=== PATIENT | female | born 1955 | race Caucasian/White ===

== ENCOUNTER 2017-10-02 10:20 | Inpatient (IN) | payer MEDICARE, BC ==
[~2017-10-02] VITALS: Ht 172.7 cm; Wt 86.2 kg
[~2017-10-02 10:20] MED LIST: CLONAZEPAM 0.50.5 M1 PO; FLEXERIL PO; HYDROCODON-ACE1 EAC7 PO; HYDROXYCHLOROQ200 M1 PO; LAMICTAL XR200 MG PO; MAGNESIUM250 M1 PO; METHOTREXATE 22.5 MG PO; PAXIL40 MG PO; PRAVACHOL40 MG PO; PREVACID15 MG PO; TRAZODONE HCL100 MG PO
[2017-10-02 10:21] VITALS: BP 111/74
[2017-10-02 10:58] LABS: ABSOLUTE BASOPHILS 0.1 thou/uL (0.0-0.2); ABSOLUTE EOSINOPHILS 0.2 thou/uL (0.0-0.7); ABSOLUTE LYMPHOCYTES 1.4 thou/uL (0.8-5.3); ABSOLUTE MONOCYTES 0.7 thou/uL (0.0-1.2); ABSOLUTE NEUTROPHILS 6.9 thou/uL (1.6-8.1); BASOPHILS 0.9 %; EOSINOPHILS 1.7 %; HEMATOCRIT 38.8 % (37.0-47.0); LYMPHOCYTES 15.3 %; MCH 32.5 pg (26.0-34.0); MCHC 33.6 g/dL (28.0-37.0); MCV 96.8 fL (80.0-100.0); MONOCYTES 7.7 %; MPV 7.5 fl. (7.2-11.1); NUCLEATED RBCS 0 /100WBC; PLATELET COUNT* 264 thou/uL (150-400); POLYS 74.4 %; RBC 4.01 mil/uL (4.20-5.00); RDW-CV 13.9 % (10.5-14.5); WBC 9.3 thou/uL (4.0-11.0)
[2017-10-02 11:04] LABS: CALCIUM 8.7 mg/dL (8.5-10.1); CREATININE 0.7 mg/dL (0.6-1.3); POTASSIUM 4.3 mmol/L (3.5-5.1); PROTIME 10.1 Seconds (9.20-11.50)
[2017-10-02 11:09] LABS: ALBUMIN 3.6 g/dL (3.4-5.0); TOTAL BILIRUBIN 0.2 mg/dL (<0.1-1.0); TOTAL PROTEIN 6.9 g/dL (6.4-8.2)
[2017-10-02 12:51] VITALS: BP 122/74
[2017-10-02 14:14] VITALS: BP 125/75
[2017-10-02 16:00] VITALS: BP 126/78
--- NOTE | 2017-10-02 16:18 | 2DMMODE ---
[place] [address] 2 D/M-MODE ECHOCARDIOGRAM Name: DEEDEE JACKMAN Room: [address] IN [facility]#: [id number] Admission: 10/02/17 Attend Phys: Alysia Rivera, Discharge: Date of : 59 Date of Service: 10/02/17 1618 Report #: [id number] THIS REPORT FOR: //name// APPROVED REPORT Study performed: 10/02/2017 14:26:47 EXAM: Comprehensive 2D, Doppler, and color-flow Echocardiogram Patient Location: In-Patient Room #: [facility] Status: routine BSA: 2.00 HR: 74 bpm BP: 122/74 mmHg Rhythm: NSR Other Information Technically limited study due to inability to position patient, patient has broken hip could not lay on side.. Indications Pre-Op 2D Dimensions LVEF(%): 70.28 (>50%) IVSd: 9.94 (7-11mm) LVOT Diam: 21.18 (18-24mm) LVDd: 46.16 mm PWd: 10.36 (7-11mm) Ascending Ao: 30.10 (22-36mm) LVDs: 27.85 (25-40mm) Aortic Root: 33.84 mm Cat's LVEF: 70.28 % Pulmonary Valve PV Peak Trae.: 1.12 m/s PV Peak Gr.: 5.06 mmHg Left Ventricle The left ventricle is normal size. There is normal LV segmental wall motion. There is normal left ventricular wall thickness. Left ventricular systolic function is normal. The left ventricular ejection fraction is within the normal range. LVEF is 60-65%. This study is not technically sufficient to allow evaluation of the LV diastolic function[place] [address] 2 D/M-MODE ECHOCARDIOGRAM Name: DEEDEE JACKMAN Room: [address] [place] .R.#: [id number] Admission: 10/02/17 Attend Phys: Alysia Rivera, Discharge: Date of : 59 Date of Service: 10/02/17 1618 Report #: [id number] The right ventricle is normal size. The right ventricular systolic function is normal. Atria The left atrium size is normal. The right atrium size is normal. Aortic Valve Mild aortic valve sclerosis. No aortic regurgitation is present. There is no aortic valvular stenosis. Mitral Valve The mitral valve is normal in structure. There is no mitral valve regurgitation noted. No evidence of mitral valve stenosis. Tricuspid Valve The tricuspid valve is normal in structure. Unable to assess PA pressure. Trace tricuspid regurgitation. Pulmonic Valve The pulmonary valve is normal in structure. There is no pulmonic valvular regurgitation. Great Vessels The aortic root is normal in size. IVC is normal in size and collapses with >50% inspiration Pericardium There is no pericardial effusion. <Conclusion> The left ventricle is normal size. There is normal left ventricular wall thickness. Left ventricular systolic function is normal. The left ventricular ejection fraction is within the normal range. LVEF is 60-65%. The right ventricle is normal size. The left atrium size is normal. Mild aortic valve sclerosis. No aortic regurgitation is present. There is no aortic valvular stenosis. The mitral valve is normal in structure. The tricuspid valve is normal in structure. IVC is normal in size and collapses with >50% [place] [address] 2 D/M-MODE ECHOCARDIOGRAM Name: DEEDEE JACKMAN eRbekah Room: [address]#: [id number] Admission: 10/02/17 Attend Phys: Alysia Rivera, Discharge: Date of : 59 Date of Service: 10/02/171617 Report #: [id number] There is no pericardial effusion. There is normal LV segmental wall motion. <ELECTRONICALLY SIGNED> By: Devaughn Leonard MD, [facility] 10/02/171617 17 1618 Devaughn Leonard MD, FACC /INF
--- NOTE | 2017-10-02 17:50 | NUR ---
ASSUMED CARE OF PATIENT AFTER ADMISSION FROM ED AT 1300. ADMISSION HISTORY AND ASSESSMENT COMPLETED AND CHARTED. VSS ON ROOM AIR. PAIN WAS NOT WELL CONTROLEED WITH FENTANYL, CALLED PHYSICIAN AND CHANGED TO MORPHINE, THIS WORKS WELL. PATIENT IS CURRENTLY A REGULAR DIET, WILL BE NPO AFTER MIDNIGHT FOR POSSIBLE SURGERY TOMORROW. PAREDES INSERTED AT APPROXIMATELY 1730, 1500 OUT UPON INSERTION. FLUIDS STARTED AND INFUSING ORDERED. NO COMPLAINTS OF NAUSEA OR SOA THIS SHIFT. ICE PACKS PLACED ON HIP FOR COMFORT. PATIENTS SISTER HAS BEEN AT BEDSIDE THROUGHOUT SHIFT. HOURLY ROUNDS MAINTAINED, CALL LIGHT IN REACH. NURSING WILL CONTINUE TO MONITOR.
[2017-10-02 23:43] VITALS: BP 111/63
[2017-10-03 01:08] VITALS: BP 111/63
[2017-10-03 04:54] LABS: HEMATOCRIT 34.7 % (37.0-47.0); HEMOGLOBIN 11.7 gm/dL (12.0-15.0); MCH 33.1 pg (26.0-34.0); MCHC 33.7 g/dL (28.0-37.0); MCV 98.2 fL (80.0-100.0); MPV 7.5 fl. (7.2-11.1); RBC 3.53 mil/uL (4.20-5.00); RDW-CV 13.7 % (10.5-14.5); WBC 8.1 thou/uL (4.0-11.0)
[2017-10-03 05:03] LABS: APTT 29.5 Seconds (25.0-31.3); PROTIME 10.2 Seconds (9.20-11.50)
[2017-10-03 05:05] LABS: CALCIUM 8.1 mg/dL (8.5-10.1); CREATININE 0.6 mg/dL (0.6-1.3); POTASSIUM 4.5 mmol/L (3.5-5.1)
[2017-10-03 05:10] LABS: ALBUMIN 3.2 g/dL (3.4-5.0); MAGNESIUM 1.8 mg/dL (1.8-2.4); TOTAL BILIRUBIN 0.5 mg/dL (<0.1-1.0)
--- NOTE | 2017-10-03 07:07 | NUR ---
PT SLEPT WELL AFTER MIDNIGHT. RECEIVING IV AND PO PAIN MED FOR GOOD CONTROL OF R HIP PAIN. BUCKS TRACTION IN PLACE TO R LEG. RHAND IVF INFUSING PER PUMP. HAS BEEN NPO SINCE MIDNIGHT FOR HIP REPAIR SURGERY THIS AFTERNOON. PAREDES DRAINING YELLOW URINE. ABLE TO USE CALL LITE AND MAKE NEEDS KNOWN.
[2017-10-03 08:00] VITALS: BP 121/62
--- NOTE | 2017-10-03 10:50 | EKG ---
[place] [address] ELECTROCARDIOGRAM REPORT Name: DEEDEE JACKMAN Room: [address] ADM IN M.R.#: [id number] Admission: 10/02/17 Attend Phys: Alysia Rivera MD Discharge: Date of : 59 Report #: [id number] THIS REPORT FOR: //name// [facility] Test Date: 2017-10-03 Test Time: 08:21:09 Pat Name: DEEDEE JACKMAN Department: Room: [address] Gender: F Assembler Installer Structures: : 1955 Requested By: Felix Hoyt Order Number: [id number] Reading MD: Ky Hernandez Measurements Intervals [place] Rate: 69 P: 71 AK: 180 QRS: 64 QRSD: 104 T: 65 QT: 405 QTc: 434 Interpretive Statements Sinus rhythm Baseline wander in lead(s) I,III,aVL Compared to ECG 05/08/2013 17:04:40 No significant changes Electronically Signed On 10-03-2017 10:49:58 CDT by Ky Hernandez [email or web address] <ELECTRONICALLY SIGNED> By: Ky Hernandez MD, [facility] 10/03/17 1049 0821 0821 Ky Hernandez MD, [facility] /EPI
--- NOTE | 2017-10-03 12:10 | NUR ---
OR STAFF HERE TO GET PT FOR HER HIP REPAIR SURGERY. CONSENT SIGNED AND PLACED ON THE CHART. PT TRANSPORTED ON BED.
--- NOTE | 2017-10-03 12:30 | NUR ---
CM UNABLE TO SEE PT. SHE WAS BEING TAKEN TO SURGERY. WILL SEE TOMORROW.
--- NOTE | 2017-10-03 17:45 | NUR ---
PT RETURNED FROM PACU FROM RT HIP REPAIR. DRESSING INTACT. PT DENIES PAIN. FAMILY CURRENTLY AT BEDSIDE. ORDERS REVIEWED.
--- NOTE | 2017-10-03 17:57 | NUR ---
SHIFT NOTE - PT OFF UNIT FOR SURGERY. PT RETURNED AROUND 1745. FAMILY PRESENT AT BEDSIDE. PT DENIES PAIN.
[2017-10-03 20:00] VITALS: BP 116/73
[2017-10-04 00:16] VITALS: BP 113/71
[2017-10-04 04:12] VITALS: BP 103/59
[2017-10-04 04:38] LABS: HEMATOCRIT 27.3 % (37.0-47.0); MCH 33.3 pg (26.0-34.0); MCV 97.9 fL (80.0-100.0); MPV 7.7 fl. (7.2-11.1); RBC 2.79 mil/uL (4.20-5.00); RDW-CV 13.7 % (10.5-14.5); WBC 12.2 thou/uL (4.0-11.0)
[2017-10-04 04:49] LABS: HEMOGLOBIN 9.3 gm/dL (12.0-15.0)
[2017-10-04 04:54] LABS: ALBUMIN 2.7 g/dL (3.4-5.0); CALCIUM 7.7 mg/dL (8.5-10.1); CREATININE 0.6 mg/dL (0.6-1.3); POTASSIUM 4.4 mmol/L (3.5-5.1); TOTAL BILIRUBIN 0.2 mg/dL (<0.1-1.0); TOTAL PROTEIN 5.4 g/dL (6.4-8.2)
--- NOTE | 2017-10-04 06:13 | NUR ---
Assumed patient care at 1910. Dressing to incision on right hip c/d/i. States that her pain is much better after surgery. Rates about a 5. Controlled with IV and oral pain medications. Passing flatus. IS provided and education done. Patietn verbalizes understanding of mobility status. Alert and oriented times four. HOurly rounding and tactical response group officer comleted as documented.
[2017-10-04 09:00] VITALS: BP 126/75
--- NOTE | 2017-10-04 10:17 | NUR ---
SW met with pt to complete initial assessment, introduce self, and SW role. Pt alert, oriented, pleasant. Pt lives at home alone but said that she has 3 nephews who will be back from college this summer and plan to take turns providing any assistance and living with pt at dc. Pt does not have any DME or history of HH or SNF. Pt says she is already feeling much better after surgery. Pt hopeful to be able to return home with HH. Pt said she would not want [facility] if SNF needed. Pt agreeable to considering other options or [facility] inpt rehab if pt qualified and was in need of any further rehab in a skilled or post acute setting. SW to continue to follow to assist with safe dc planning.
[2017-10-04 16:00] VITALS: BP 121/67
--- NOTE | 2017-10-04 17:50 | NUR ---
PATIENT IS ALERT AND ORIENTED TODAY VERY PLEASANT. TOLERATED THERAPY WELL TODAY, HAS BEEN IN CHAIR MOST OF THE DAY. PAIN HAS BEEN CONTROLLED WITH ORAL PAIN MEDICATION TODAY. VITAL SIGNS HAVE BEEN STABLE ON ROOM AIR. FAMILY HAS BEEN AT BEDSIDE MOST OF THE DAY. CALL LIGHT IS IN REACH, WILL CONTINUE TO MONITOR.
[2017-10-04 21:00] VITALS: BP 113/63
[2017-10-05 03:34] VITALS: BP 103/54
[2017-10-05 04:36] LABS: HEMATOCRIT 22.9 % (37.0-47.0); HEMOGLOBIN 7.8 gm/dL (12.0-15.0); MCH 33.2 pg (26.0-34.0); MCHC 34.2 g/dL (28.0-37.0); MCV 97.1 fL (80.0-100.0); MPV 7.5 fl. (7.2-11.1); RBC 2.36 mil/uL (4.20-5.00); RDW-CV 13.5 % (10.5-14.5); WBC 10.3 thou/uL (4.0-11.0)
[2017-10-05 05:11] LABS: ALBUMIN 2.6 g/dL (3.4-5.0); CALCIUM 7.8 mg/dL (8.5-10.1); CREATININE 0.5 mg/dL (0.6-1.3); MAGNESIUM 1.9 mg/dL (1.8-2.4); POTASSIUM 3.8 mmol/L (3.5-5.1); TOTAL BILIRUBIN 0.4 mg/dL (<0.1-1.0); TOTAL PROTEIN 5.7 g/dL (6.4-8.2)
--- NOTE | 2017-10-05 07:15 | NUR ---
PATIENT HAS SLEPT WELL THROUGHOUT THE NIGHT WITHOUT ANY ISSUES. PAIN WELL CONTROLLED WITH ORAL PAIN MEDICATION AND CHARTED. VSS ON RA. PATIENT REMAINS TTWB ON RIGHT LEG. PATIENT IS UP WITH ASSIST X 1 TO THE BSC. DRESSING TO RIGHT LEG IS C/D/I. IV TO RIGHT HAND-SL. PATIENT INSTRUCTED TO USE CALL LIGHT WHEN NEEDING ASSISTANCE. HOURLY ROUNDS MADE. WILL CONTINUE WITH PLAN OF CARE AND NURSING TO MONITOR.
[2017-10-05 07:40] VITALS: BP 102/63
[2017-10-05 16:19] VITALS: BP 113/64
--- NOTE | 2017-10-05 18:06 | NUR ---
PATIENT HAS BEEN ALERT ORIENTED TODAY VERY PLEASANT. PAIN THAT IS CONTROLLED WITH ORAL PAIN MEDICATIONS TODAY. HAS BEEN UP TO THE BEDSIDE COMMODE TODAY. FAMILY HAS BEEN AT BEDSIDE TODAY. CALL LIGHT IS IN REACH, WILL CONTINUE TO MONITOR.
[2017-10-05 21:20] VITALS: BP 113/69
[2017-10-06 01:17] VITALS: BP 106/58
[2017-10-06 04:00] VITALS: BP 103/63
[2017-10-06 07:30] VITALS: BP 98/63
--- NOTE | 2017-10-06 08:29 | NUR ---
PATIENT HAS SLEPT WELL THROUGHOUT THE NIGHT WITHOUT ANY ISSUES. PAIN WELL CONTROLLED WITH ORAL PAIN MEDICATION AND CHARTED. VSS ON RA. DRESSING TO RIGHT LEG IS C/D/I. SCD'S IN PLACE. PATIENT IS UP WITH ASSIST X 1 TO THE BATHROMM. IV IN RIGHT HAND-SL. PATIENT INSTRUCTED TO USE CALL LIGHT WHEN NEEDING ASSISTANCE. HOURLY ROUNDS MADE.
--- NOTE | 2017-10-06 11:59 | NUR ---
REHAB CONSULT RECEIVED AND ACKNOWLEDGED BY DR. BAGLEY AND SUPERVISOR WET POUR. PATIENT WITH RIGHT FEMUR FX S/P FALL AND SURGERY 10/03 FOR ORIF. UPON INITIAL REVIEW, NO OT SERVICES ARE IN PLACE. I REQUESTED AN ORDER FOR O.T. TO DETERMINE IF PATIENT MEETS NEED OF 2 DISCIPLINES FOR INPATIENT REHAB. THANK YOU.
[2017-10-06 16:00] VITALS: BP 114/57
[2017-10-06] MEDS ORDERED: OXYCODONE HCL5 M1 PO (16:04)
[2017-10-06] MEDS ORDERED: PREDNISONE 20 M20 MG PO (16:04)
[2017-10-06] MEDS ORDERED: TRAMADOL 50 MG50 MG PO (16:04)
[2017-10-06] MEDS ORDERED: NICOTINE TRANSD21 M1 TRANSDERM (16:04)
--- NOTE | 2017-10-06 17:41 | NUR ---
PATIENT LEFT UNIT AT 1740. UP WITH ASSIST X1 WITH WALKER AND GAIT BELT. IV DC'D. PAIN BEING MANAGED WITH PO PAIN MEDICATION. DENIES NAUSEA. PATIENT ATTENDED PHYSICAL AND OCCUPATIONAL THERAPY THIS SHIFT. TOLERATING DIET. ALL PERSONAL ITEMS SENT WITH PATIENT. VSS ON ROOM AIR. HOURLY ROUNDS HAVE BEEN MAINTAINED THROUGHOUT SHIFT. TRANSFERRED TO REHAB ROOM 324. REPORT GIVEN TO LIZETT RHODES.
--- NOTE | 2017-10-08 11:57 | OP ---
[address] [address] OPERATIVE REPORT Name: DEEDEE JACKMAN Rebekah Room: [address]#: [id number] Admission: 10/02/17 Attend Phys: Alysia Rivera MD Discharge: 10/06/17 Date of : 59 Report #: [id number] THIS REPORT FOR: //name// CC: Alysia Silverman DATE OF SERVICE: 10/03/2017 PREOPERATIVE DIAGNOSIS: Closed complex subtrochanteric - intertrochanteric fracture, right hip. POSTOPERATIVE DIAGNOSIS: Closed complex subtrochanteric - intertrochanteric fracture, right hip. OPERATION PERFORMED: Open reduction and internal fixation of a complex closed right hip fracture, intertrochanteric - subtrochanteric fracture and physician-directed fluoroscopy less than [address] Christie. SURGEON: Alberto Christie DO FRE[address]ANCE COURT STENOGRAPHER: Vishal Link DO SECOND DAIRY WORKER: Mendy Andino DO ANESTHESIA: General. GROSS PATHOLOGY: There was evidence of intertrochanteric fracture with subtrochanteric extension, which is complex in nature as patient is markedly obese and because of this fracture pattern, required a long cephalomedullary ish rather than the usual standard cephalomedullary ish. IMPLANTS UTILIZED: [place] long gamma ish with 85 mm lag screw, distal locking screws x 2, set screw proximal portion of ish. DESCRIPTION OF PROCEDURE: The patient was brought to the operating room where general anesthetic was administered. Preoperative antibiotics were given. The patient was placed on the operating table, where the right leg was placed in traction and reduced as best could be done. Further reduction was done intraoperatively. A Hibiclens scrub and a ChloraPrep, prep are done to the right hip, leg. The patient was draped in a sterile manner. An incision was made approximately 3 inches length at the greater trochanter of the right hip. It was carried down through the skin and subcuticular material by sharp dissection. By sharp and blunt dissection, the greater trochanter tip was identified and the starting awl was utilized to make a hole in this region. As there was some flexion of the proximal fragment and posterior displacement and lateral of the shaft of the femur, the incision was further made approximately [address] [place] [address] OPERATIVE REPORT Name: DEEDEE JACKMAN Rebekah Room: [address]#: [id number] Admission: 10/02/17 Attend Phys: Alysia Rivera MD Discharge: 10/06/17 Date of : 59 Report #: [id number] inches in length in the intertrochanteric region laterally. It was carried down through the skin and subcuticular material by sharp dissection. Tensor fascia tracee split in line with the incision. The soft tissue vastus material was elevated off the lateral aspect of the femur. By means of clamps and elevators, the fracture was further manually reduced and held in reduced position. The guidewire was placed down the shaft of the femur to the superior pole of the patella and measurements were taken. Keeping the fracture reduced, the femur was then reamed to 13 mm, increasing from 9 mm, successfully increasing the size of the reamers. The 15.5 mm reamer was utilized for the starting hole area down to the lesser trochanteric region. The long gamma cephalomedullary ish is assembled, placed over the guidewire to the appropriate depth and the guidewire was removed. Final advancement was in good position. C-arm was used intermittently through this procedure being under my direction. Utilizing the guide, which lines up with the incision, which was used for further reduction, a guidewire was inserted into the femoral neck and head to the appropriate depth, measurements are taken. The reamer was used to ream over the guidewire. The lag screw was then placed over the guidewire. Proximal locking screw was tightened into the lag screw and backed off a quarter turn. The inserting device was removed. Attention was turned to the distal femur. Utilizing freehand technique, small incisions were made. The guides were placed across the ish through the 2 holes, measurements were taken. Screws x 2 are placed across the distal portion of the ish. Final C-arm visualization revealed acceptable position of the fracture sites and implant devices. The deep tissues are closed with odd Vicryl suture, tensor with odd Vicryl suture, subcutaneous with 2-0 Vicryls and sravan on the skin. Estimated blood loss was approximately 400 mL. The wounds were thoroughly irrigated through the procedure. The needle and sponge count reported as correct. The areas were anesthetized with Marcaine, 30 mL of 0.5% plain. The patient was transferred to recovery room in good condition. <ELECTRONICALLY SIGNED> By: Horacio Luu DO 10/08/17 1157 1645 1731Alberto Christie DO /nt
--- NOTE | 2017-10-08 11:57 | CON ---
[address] [address] CONSULTATION Name: DEEDEE JACKMAN Rebekah Room: [address]#: [id number] Admission: 10/02/17 Attend Phys: Alysia Rivera MD Discharge: 10/06/17 Date of : 59 Report #: [id number] THIS REPORT FOR: //name// CC: Alysia Uriosteguijewelmarilou DATE OF SERVICE: 10/03/2017 HISTORY OF PRESENT ILLNESS: This patient is seen for orthopedic problem of right hip pain. She reportedly fell off a ladder while trimming a tree on 10/02/2017. She has been admitted, stabilized and presents for surgery. She has no other major complaints. Her medications reviewed per her list. PAST MEDICAL HISTORY: Consistent with anxiety, bipolar, rheumatoid arthritis, hypertension. SOCIAL HISTORY: Smokes pack of cigarettes for 1-1.5 packs for at least 42 years. Minimal alcohol use or recreational drugs. REVIEW OF SYSTEMS: A 14-point review of symptoms, right hip pain. Otherwise, essentially negative. PHYSICAL EXAMINATION: GENERAL: Reveals a moderately obese female with normal constitution. HEENT: Head normocephalic. EARS: Normal hearing. EYES: PERRLA. RESPIRATIONS: Unlabored. EXTREMITIES: Right leg reveals pain with any movement. There are no puncture wounds or abrasions to the right hip region. IMAGING: The x-rays reveal a comminuted intertrochanteric subtrochanteric fracture of the right hip. PLAN: The patient has been counseled regarding the surgery, alternatives and possible complications. Postoperative care has been reviewed. The surgery has also been reviewed with her sister and they wished to proceed with surgery. <ELECTRONICALLY SIGNED> By: Horacio Luu DO 10/08/17 1157 1637 1651Alberto Christie DO /nt
--- NOTE | 2017-10-30 12:46 | CON ---
[address] [address] CONSULTATION Name: JACKMANDEEDEE L Room: [address]#: [id number] Admission: 10/02/17 Attend Phys: Alysia Rivera MD Discharge: 10/06/17 Date of : 59 Report #: [id number] THIS REPORT FOR: //name// CC: Alysia Silverman REASON FOR CONSULTATION: Evaluation and recommendations regarding post-acute rehabilitation needs in a female admitted post right femur fracture after falling from a ladder, landing on the right side. No loss of consciousness. Status post diagnosis of closed complex subtrochanteric intertrochanteric fracture, post ORIF on 10/03/2017 with ongoing needs in physical therapy and occupational therapy. She also has a history of hypertension, bipolar, hyperlipidemia, osteoporosis, RA, elevated LFTs and tobaccoism. She is working with therapy. ALLERGIES: PIROXICAM. MEDICATIONS: Reviewed and are available in the MAR. PAST MEDICAL AND SURGICAL HISTORY: Hypertension, anxiety, depression, rheumatoid arthritis, bipolar, hyperlipidemia, osteoporosis, stomach ulcers, gallstones, cholecystectomy, bunionectomy, hysterectomy and bilateral salpingo-oophorectomy. SOCIAL HISTORY: No current tobacco, no alcohol or illicit drug use. PHYSICAL EXAMINATION: GENERAL: Alert, oriented, no apparent distress. VITAL SIGNS: Reviewed and are stable. HEENT: Atraumatic, normocephalic. Pupils equal, round, reactive. ABDOMEN: Soft, nontender, nondistended. NEUROLOGIC: Cranial nerves 2-12 grossly intact. No focal neuro deficits. ASSESSMENT: 1. Acute right traumatic femur fracture post open reduction internal fixation. 2. Bipolar, hyperlipidemia, rheumatoid arthritis, osteoporosis, hypertension, and multiple medical comorbidities. PLAN: 1. Recommend acute inpatient rehabilitation to facilitate safe discharge to home setting. 2. Continue to work with PT and OT. 3. We will follow. <ELECTRONICALLY SIGNED> By: Vianey Castellano DO 10/30/17 1246 1303 1312Vianey Castellano DO /nt
== END 2017-10-06 17:40 | DRG 481 ==
LOC: M.ERS 10:20 → M.TBA-ER 12:22 → M.ORTHSURG 12:22
PROVIDERS: Physician Assistant; ADMIT Internal Medicine
PROC: 0QS804Z Reposition Right Femoral Shaft with Internal Fixation Device, Open Approach (ICD-10-PCS; principal; 2017-10-03)
DX: S72.141A Displaced intertrochanteric fracture of right femur, initial encounter for closed fracture (principal); E44.1 Mild protein-calorie malnutrition; M06.9 Rheumatoid arthritis, unspecified; I10 Essential (primary) hypertension; F41.9 Anxiety disorder, unspecified; F17.210 Nicotine dependence, cigarettes, uncomplicated; K21.9 Gastro-esophageal reflux disease without esophagitis; F31.9 Bipolar disorder, unspecified; J44.9 Chronic obstructive pulmonary disease, unspecified; E78.5 Hyperlipidemia, unspecified; M81.0 Age-related osteoporosis without current pathological fracture; R79.89 Other specified abnormal findings of blood chemistry; W11.XXXA Fall on and from ladder, initial encounter; Y93.89 Activity, other specified; Z88.3 Allergy status to other anti-infective agents; Z68.28 Body mass index [BMI] 28.0-28.9, adult; Y92.198 Other place in other specified residential institution as the place of occurrence of the external cause; Y99.8 Other external cause status; Z90.49 Acquired absence of other specified parts of digestive tract; Z90.710 Acquired absence of both cervix and uterus; Z79.899 Other long term (current) drug therapy

== ENCOUNTER 2017-10-06 15:10 | Inpatient (IN) | payer MEDICARE, BC ==
[~2017-10-06] VITALS: Ht 172.7 cm; Wt 95.4 kg
[2017-10-06] MEDS ORDERED: PREDNISONE 20 M20 MG PO (16:04)
[2017-10-06] MEDS ORDERED: OXYCODONE HCL5 M1 PO (16:04)
[2017-10-06] MEDS ORDERED: NICOTINE TRANSD21 M1 TRANSDERM (16:04)
[2017-10-06] MEDS ORDERED: TRAMADOL 50 MG50 MG PO (16:04)
[2017-10-06 17:57] VITALS: BP 115/67
[2017-10-06 19:51] VITALS: BP 111/66
[2017-10-07 04:59] LABS: HEMATOCRIT 23.6 % (37.0-47.0); HEMOGLOBIN 7.8 gm/dL (12.0-15.0); MCH 32.7 pg (26.0-34.0); MCHC 33.2 g/dL (28.0-37.0); MCV 98.4 fL (80.0-100.0); MPV 7.2 fl. (7.2-11.1); RBC 2.4 mil/uL (4.20-5.00); RDW-CV 13.5 % (10.5-14.5); WBC 12.5 thou/uL (4.0-11.0)
[2017-10-07 05:18] LABS: CALCIUM 8.3 mg/dL (8.5-10.1); CREATININE 0.5 mg/dL (0.6-1.3); POTASSIUM 4.2 mmol/L (3.5-5.1)
[2017-10-07 07:50] VITALS: BP 111/50
[2017-10-07 17:39] VITALS: BP 106/38
[2017-10-07 19:53] VITALS: BP 111/66
[2017-10-08 08:00] VITALS: BP 98/64
[2017-10-08 19:55] VITALS: BP 119/63
[2017-10-09 04:29] LABS: HEMATOCRIT 21.8 % (37.0-47.0); HEMOGLOBIN 7.2 gm/dL (12.0-15.0); MCH 32.4 pg (26.0-34.0); RDW-CV 13.4 % (10.5-14.5)
[2017-10-09 04:32] LABS: MCHC 33.1 g/dL (28.0-37.0); MCV 98.1 fL (80.0-100.0); MPV 7.2 fl. (7.2-11.1); RBC 2.22 mil/uL (4.20-5.00)
[2017-10-09 04:41] LABS: CALCIUM 8.8 mg/dL (8.5-10.1); CREATININE 0.6 mg/dL (0.6-1.3); MAGNESIUM 2.2 mg/dL (1.8-2.4); POTASSIUM 4.9 mmol/L (3.5-5.1)
[2017-10-09 08:02] VITALS: BP 111/68
[2017-10-09 19:45] VITALS: BP 118/61
[2017-10-10 04:26] LABS: HEMATOCRIT 23.1 % (37.0-47.0); HEMOGLOBIN 7.4 gm/dL (12.0-15.0); MCH 31.6 pg (26.0-34.0); MCV 98.8 fL (80.0-100.0); MPV 6.8 fl. (7.2-11.1); RBC 2.33 mil/uL (4.20-5.00); RDW-CV 13.9 % (10.5-14.5); WBC 13.5 thou/uL (4.0-11.0)
[2017-10-10 04:42] LABS: CALCIUM 8.6 mg/dL (8.5-10.1); CREATININE 0.7 mg/dL (0.6-1.3); MAGNESIUM 2.1 mg/dL (1.8-2.4); POTASSIUM 4.4 mmol/L (3.5-5.1)
[2017-10-10 07:55] VITALS: BP 117/53
[2017-10-10 20:15] VITALS: BP 113/62
[2017-10-11 08:00] VITALS: BP 111/72
[2017-10-11 19:30] VITALS: BP 119/71
[2017-10-12 08:00] VITALS: BP 112/76
[2017-10-12 19:53] VITALS: BP 100/47
[2017-10-13 04:16] LABS: HEMATOCRIT 24.9 % (37.0-47.0); HEMOGLOBIN 8.5 gm/dL (12.0-15.0); MCH 33.9 pg (26.0-34.0); MCHC 34.1 g/dL (28.0-37.0); MCV 99.4 fL (80.0-100.0); MPV 6.7 fl. (7.2-11.1); RBC 2.51 mil/uL (4.20-5.00); RDW-CV 14.3 % (10.5-14.5); WBC 8.7 thou/uL (4.0-11.0)
[2017-10-13 04:57] LABS: CALCIUM 8.2 mg/dL (8.5-10.1); CREATININE 0.7 mg/dL (0.6-1.3); POTASSIUM 5.1 mmol/L (3.5-5.1)
[2017-10-13 07:30] VITALS: BP 100/52
[2017-10-13 19:57] VITALS: BP 126/52
[2017-10-14 08:24] VITALS: BP 123/72
[2017-10-14 20:30] VITALS: BP 107/59
[2017-10-15 08:00] VITALS: BP 108/48
[2017-10-15 20:26] VITALS: BP 116/67
[2017-10-16 08:00] VITALS: BP 118/44
[2017-10-16 20:34] VITALS: BP 113/54
[2017-10-17 00:23] VITALS: BP 113/54
[2017-10-17] MEDS ORDERED: FOLIC ACID1 MG PO (00:34)
[2017-10-17] MEDS ORDERED: IFEREX 150150 MG PO (00:38)
[2017-10-17 08:07] VITALS: BP 102/61
[2017-10-17 10:13] VITALS: BP 113/54
[2017-10-17 12:24] VITALS: BP 113/54
--- NOTE | 2017-10-30 12:46 | H ---
[place] [address] HISTORY AND PHYSICAL Name: DEEDEE JACKMAN Room: [address]#: [id number] Admission: 10/06/17 Attend Phys: Vianey Castellano DO Discharge: 10/17/17 Date of : 59 Report #: [id number] THIS REPORT FOR: //name// CC: Vianey Silverman DATE OF SERVICE: 10/06/2017 HISTORY OF PRESENT ILLNESS: This is a 62-year-old female admitted to inpatient rehabilitation to facilitate safe discharge home, status post fall from a ladder, sustaining a displaced intertrochanteric and subtrochanteric fracture of the right hip, status post ORIF on 10/03/2017. She was admitted originally on 10/02/2017. Previous level of function was independent with activities of daily living. Current level of function is minimum to moderate assistance of 1-2 depending on therapy, activity and time of day. Estimated length of stay is 10-14 days with discharge disposition to the home setting, where she lives in a ranch-style house with one step to enter. She does have sister who can provide assistance, although she does live alone. No significant changes since the preadmission screening. She does have multiple medical comorbidities, requiring acute daily medical care. PAST MEDICAL HISTORY: Hypertension, anxiety, depression, bipolar, rheumatoid arthritis, hyperlipidemia, osteoporosis, gallstones, multiple broken bones, cholecystectomy, bunionectomy, hysterectomy, tobaccoism and stomach ulcers. ALLERGIES: PIROXICAM. MEDICATIONS: Reviewed, reconciled by myself and are available in the MAR. SOCIAL HISTORY: Unchanged from previous consultation. REVIEW OF SYSTEMS: A 14-point review of systems is done today, is negative except as mentioned in HPI, specifically no fever, chest pain, shortness of breath, abdominal pain or distention, change in bowel or change in bladder. PHYSICAL EXAMINATION: GENERAL: Alert, oriented, no apparent distress. VITAL SIGNS: Reviewed and are stable. HEENT: Atraumatic, normocephalic. Pupils are equal, round, reactive. ABDOMEN: Soft, nontender, nondistended. NEUROLOGIC: Cranial nerves 2-12 are grossly intact with no focal neuro deficits, 5/5 strength in bilateral upper and lower extremities. SKIN: Warm and dry. No rashes or lesions noted. ASSESSMENT: 1. Status post subtrochanteric and intertrochanteric [place] [address] HISTORY AND PHYSICAL Name: DEEDEE JACKMAN Room: [address]#: [id number] Admission: 10/06/17 Attend Phys: Vianey Castellano DO Discharge: 10/17/17 Date of : 59 Report #: [id number] post fall from a ladder, status post open reduction and internal fixation on 10/03/2017. 2. Multiple medical comorbidities. PLAN: 1. Admission to inpatient rehabilitation. 2. PT, OT, case management, nursing and HIMS to make evaluations and recommendations. 3. Plan of care is pending. 4. Medications have been reviewed and are available in the MAR. 5. We will team her weekly and make changes to plan of care as needed. <ELECTRONICALLY SIGNED> By: Vianey Castellano DO 10/30/17 1246 0614 0636Vianey Castellano DO /nt
--- NOTE | 2017-10-30 12:46 | PLAN ---
[address] [address] REHAB UNIT PLAN OF CARE Name: DEEDEE JACKMAN Room: [address]#: [id number] Admission: 10/06/17 Attend Phys: Vianey Castellano, Discharge: 10/17/17 Date of : 59 Report #: [id number] THIS REPORT FOR: //name// CC: Vianey Castellano Jimbo Silverman This is a 62-year-old female status-post acute hospitalization for a subtrochanteric, intertrochanteric fracture of the right hip, status post ORIF on 10/03/2017 after sustaining a fall from a ladder. MEDICAL PROGNOSIS: Good. REHABILITATION PROGNOSIS: Good. Estimated length of stay is 10-14 days with discharge disposition to the home setting, where she does live alone, but has supportive family in the area. She lives in a ranch-style house with one step to enter. Previous level of function was independent with activities of daily living. Current level of function is minimum assistance of 1-2 depending on therapy, activity and time of day. Physical Therapy will see the patient 60-90 minutes per day, 5 days per week, working on upper and lower body strength, balance, coordination, navigation. Occupational Therapy will see the patient 60-90 minutes per day, 5 days per week, working on upper and lower body strength, balance, coordination, navigation, bathing, dressing, and toileting. This is an overall plan of care, may change from time to time. We will team her weekly and make changes to the plan of care as needed. <ELECTRONICALLY SIGNED> By: Vianey Castellano DO 10/30/17 1246 0616 0641Vianey Castellano DO /nt
--- NOTE | 2018-01-05 10:19 | D ---
[facility] [address] [place] [address] DISCHARGE SUMMARY Name: DEEDEE JACKMAN Room: [address] [place] .R.#: [id number] Admission: 10/06/17 Attend Phys: Vianey Castellano DO Discharge: 10/17/17 Date of : 59 Report #: [id number] THIS REPORT FOR: //name// CC: Vianey Castellano Jimbo Silverman DATE OF SERVICE: 10/17/2017 DISCHARGE DIAGNOSES: Displaced intertrochanteric and subtrochanteric fracture of the right hip, status post open reduction and internal fixation. DISCHARGE DISPOSITION: To home with home health PT, OT and nursing. She will follow with primary care physician within 1 week. She will follow with her orthopedic surgeon within 2-4 weeks. Notifications for physician were given. Maintain regular diet. Maintain fall precautions and monitor weight gain. MEDICATIONS: Reviewed were reconciled by myself and are available in the MAR. The patient did progress towards goals with physical and occupational therapy with no significant incidence during her stay on acute inpatient rehabilitation. DISCHARGE PHYSICAL EXAMINATION: GENERAL: Alert, oriented, no apparent distress. VITAL SIGNS: Reviewed and are stable. HEENT: Atraumatic, normocephalic. Pupils equal, round, reactive. ABDOMEN: Soft, nontender, nondistended. NEUROLOGIC: Cranial nerves 2-12 are grossly intact with no focal neuro deficit. <ELECTRONICALLY SIGNED> By: Vianey Castellano DO 01/05/18 1019 1603 1941Vianey Castellano DO /yany
== END 2017-10-17 12:24 | disposition home health service (06) | DRG 536 ==
LOC: M.REH 15:10
PROVIDERS: Internal Medicine; ADMIT Physical Medicine & Rehabilitation
DX: S72.21XA Displaced subtrochanteric fracture of right femur, initial encounter for closed fracture (principal); S72.141A Displaced intertrochanteric fracture of right femur, initial encounter for closed fracture; I10 Essential (primary) hypertension; F41.8 Other specified anxiety disorders; M06.9 Rheumatoid arthritis, unspecified; E78.5 Hyperlipidemia, unspecified; W11.XXXA Fall on and from ladder, initial encounter; F17.210 Nicotine dependence, cigarettes, uncomplicated; M81.0 Age-related osteoporosis without current pathological fracture; Z90.49 Acquired absence of other specified parts of digestive tract; Z90.710 Acquired absence of both cervix and uterus; Z88.8 Allergy status to other drugs, medicaments and biological substances; Y92.096 Garden or yard of other non-institutional residence as the place of occurrence of the external cause; Y93.H2 Activity, gardening and landscaping; Z60.2 Problems related to living alone; F31.9 Bipolar disorder, unspecified; D52.9 Folate deficiency anemia, unspecified; D50.9 Iron deficiency anemia, unspecified; Y99.8 Other external cause status

== ENCOUNTER 2018-07-27 19:39 | Emergency (ER) | payer MEDICARE, BC ==
[~2018-07-27] VITALS: Ht 172.7 cm; Wt 86.2 kg
[~2018-07-27 19:39] MED LIST changes: +FOLIC ACID1 MG PO; +IFEREX 150150 MG PO; +NICOTINE TRANSD21 M1 TRANSDERM; +OXYCODONE HCL5 M1 PO; +PREDNISONE 20 M20 MG PO; +TRAMADOL 50 MG50 MG PO
[2018-07-27 20:40] VITALS: BP 157/76
== END 2018-07-27 20:40 | disposition home or self-care (01) ==
LOC: M.ERS 19:39
DX: S61.211A Laceration without foreign body of left index finger without damage to nail, initial encounter (principal); F41.9 Anxiety disorder, unspecified; M06.9 Rheumatoid arthritis, unspecified; F31.9 Bipolar disorder, unspecified; E78.5 Hyperlipidemia, unspecified; M81.0 Age-related osteoporosis without current pathological fracture; F17.210 Nicotine dependence, cigarettes, uncomplicated; Z90.49 Acquired absence of other specified parts of digestive tract; Z90.710 Acquired absence of both cervix and uterus; Z90.722 Acquired absence of ovaries, bilateral; Z88.6 Allergy status to analgesic agent; W26.8XXA Contact with other sharp object(s), not elsewhere classified, initial encounter; Y93.89 Activity, other specified; Y92.89 Other specified places as the place of occurrence of the external cause; Y99.8 Other external cause status